=== PATIENT | female | born 1965 | race Caucasian/White ===

== ENCOUNTER 2025-01-04 06:37 | Emergency (ER) | payer OTHER, SELFPAY ==
--- NOTE | ~2025-01-04 | CT_ITS ---
EXAM/PROCEDURE: CT abdomen pelvis wo con HISTORY: right flank pain COMPARISON: None available. TECHNIQUE: Noncontrast CT of abdomen and pelvis FINDINGS: The bowel gas pattern is nonobstructive with no free air free fluid or pneumatosis. Patient status post cholecystectomy and apparent hysterectomy. Small bilateral extrarenal pelves present. Mild right-sided pelvocaliectasis may also be present, although no clearly identified obstructing ureteral stones present. There are several tiny calcifications overlying the expected course of the distal third of the right ureter, however most or all of these are phleboliths. Moderate amount of stool extends to the cecum. No grossly inflamed appendix. Aorta normal in size. Adrenal glands spleen pancreas stomach and liver within normal limits for technique. Mild atelectatic changes in lung bases which are otherwise clear. Trace pericardial effusion. Heart size normal. Diffuse degenerative changes throughout the bones which are otherwise intact. IMPRESSION: Directed noncontrast exam with no clearly identified source of patient's symptoms. A minimally or nonobstructing distal right ureteral stone is not excluded. Other findings as above. Reviewed, dictated and finalized at location A. EL PLANT OPERATOR IMPRESSION: Directed noncontrast exam with no clearly identified source of mike ent's symptoms. A minimally or nonobstructing distal right ureteral stone is no t excluded. Other findings as above.
[2025-01-04 06:53] VITALS: BP 115/77; PULSE 66; RESP 18; TEMP 36.4; O2SAT 100
[2025-01-04 07:13] LABS: Hematocrit 41.1 % (37.0-47.0); Hemoglobin 13.2 g/dL (12.0-15.0); Immature Granulocyte Percent A 0.2 % (0-0.5); Lymphocytes Absolute Auto 2.49 K/mm3 (0.9-3.2); Mean Corpuscular HGB Conc 32.1 g/dl (32-36); Mean Corpuscular Hemoglobin 28.9 pg (26-34); Mean Corpuscular Volume 90.1 fl (80-100); Nucleated Red Blood Cells Absolute Auto 0.000 K/mm3 (0.0-0.012); Nucleated Red Blood Cells Perc 0.0 % (0.0-0.2); Platelet Count Result 290 k/mm3 (150-375); Red Blood Count 4.56 M/mm3 (4.2-5.4); White Blood Count 6.5 K/mm3 (4.5-10.0)
--- NOTE | 2025-01-04 07:27 | PC.NURSE ---
patient ambulated to the bathroom at this time, maintained a steady gait. was provided education on providing a urine sample and to take the sample back to the patients room with her.
[2025-01-04 07:30] LABS: Alanine Aminotransferase 17 U/L (6-35); Albumin Level 4.3 g/dL (3.5-5.1); Alkaline Phosphatase 67 U/L (38-126); Anion Gap 6 mmol/L (4-12); Aspartate Amino Transferase 24 U/L (14-36); Bilirubin,Total 0.5 mg/dL (0.2-1.3); Blood Urea Nitrogen 14 mg/dL (7-17); Calcium 9.3 mg/dL (8.4-10.2); Carbon Dioxide 27 mmol/L (22-30); Chloride 103 mmol/L (98-107); Estimated CRCL calculation 74 ml/min; Estimated Glomerular Filt Rate > 60; Glucose 94 mg/dL (65-110); Potassium 4.6 mmol/L (3.4-5.0); Sodium 136 mmol/L (137-145); Total Protein 7.4 g/dL (6.3-8.2)
[2025-01-04 07:44] LABS: Add Urine Microscopic? YES; Appearance Urine Clear (Clear); Glucose Urine UA Negative (Negative); Leukocyte Esterase Ur Trace LEU/UL (Negative); Nitrate Urine Negative (Negative); Non Pathogenic Casts 0-2; Specific Grav Ur 1.004 (1.001-1.035)
[2025-01-04] MEDS: SODIUM CHLORIDE 0.9% IV 1,000 ML 999 ML IV CONT (08:10)
[2025-01-04] MEDS: HYDROmorphone HCL INJ (*CRX) 1 MG/ML SYR IV PUSH (08:10)
[2025-01-04] MEDS: ONDANSETRON INJ 4 MG/2 ML VIAL IV PUSH (08:10)
--- OUTSIDE RECORDS SUMMARY | 2025-01-04 08:39 | XMS_ITS | Clinical Summary ---
Author Organization [facility] Address [address] [place] [address] Care Team Providers Care Nurse Chemical Dependency Name Role Phone Kong Faustin MD Primary Care Provider [phone] Allergies No known active allergies Medications olmesartan (BENICAR) 20 mg tablet Take 1 tablet (20 mg total) by mouth daily 90 tablet 2 5 Active metFORMIN (GLUCOPHAGE) 500 mg tablet Take 1 tablet (500 mg total) by mouth daily with breakfast 90 tablet 2 5 Active tirzepatide, weight loss, (Zepbound) 7.5 mg/0.5 mL pen injector Inject 0.5 mL (7.5 mg total) under the skin every 7 days 2 mL 3 5 Active Active Problems Problem Noted Date Diagnosed Date Right wrist pain 04/29/2024 Assessment & Plan (04/29/2024 9:14 AM NATIONAL SALES MANAGER): Hand Ortho referral Chronic pain of left thumb 04/29/2024 Assessment & Plan (04/29/2024 9:14 AM NATIONAL SALES MANAGER): Hand Ortho referral Benign hypertension 01/28/2024 Assessment & Plan (01/28/2024 9:13 AM NATIONAL SALES MANAGER): At goal Continue olmesartan 20mg daily Prediabetes 10/29/2023 Assessment & Plan (04/29/2024 9:13 AM NATIONAL SALES MANAGER): A1C 5.2% Assessment & Plan (01/28/2024 9:18 AM NATIONAL SALES MANAGER): Continue metformin May d/c if Zepbound coverage continues with insurance change in February 2024 Labs due next visit Assessment & Plan (10/29/2023 2:00 PM CDT): Improved on Ozempic, however did not tolerate due to s/e A1C 5.5% Given WNL A1C will attempt Zepbound which appears covered BMI 33.0-33.9,adult 10/29/2023 Assessment & Plan (04/29/2024 9:13 AM NATIONAL SALES MANAGER): Continue Zepbound 7.5mg weekly Assessment & Plan (01/28/2024 9:14 AM NATIONAL SALES MANAGER): Continue Zepbound, to communicate with 3rd dose for increase Discussed focus on strength training and protein Assessment & Plan (10/29/2023 2:01 PM CDT): Will trial Zepbound Will notify me with 3rd dose how she is tolerating and increase if able Discussed weekly weights, prioritizing protein, strength training Goal of 5% (11 lbs.) weight loss over next 3 months Discussed s/e and interventions Resolved Problems Problem Noted Date Diagnosed Date Resolved Date Chest wall muscle strain 04/01/202306/2023 Assessment & Plan (04/01/2023 2:24 PM NATIONAL SALES MANAGER): Discussed with Dr. Roxie GRAVES done today-WNL Suspect muscle strain, will treat with MDP and if not improving by Thursday to contact us Soft tissue swelling 06/19/2016 024 Surgical follow-up care 02/15/2013 02/0 08/2023 Knee pain 11/03/2012 04/01/2023 Closed fracture of metacarpal bone 07/18/2010 04/01/2023 Right upper quadrant abdominal pain 04/22/2010 04/01/2023 Immunizations Immunization Administration Dates Next Due Influenza, Quadrivalent, Spl it, Preservative Free, Intramuscular 01/14/2017 Influenza, Trivalent, IM (MDV) 12/27/2013 Influenza, Unspecified 03/17/2012 Surgical History Surgery Date Site/Laterality Comments KNEE SURGERY HYSTERECTOMY GALLBLADDER SURGERY FEMUR SURGERY JOINT REPLACEMENT CHOLECYSTECTOMY Medical History Medical History Date Comments Encounter for other orthopedic aftercare Orthopedic aftercare - (Added by TW Conv) Headache Migraines Hypertension Family History Medical History Relation Name Comments Hypertension Brother Shreyas Funk Arthritis Father Shreyas Diabetes Father Shreyas Heart attack Father Shreyas Hypertension Father Shreyas Hearing loss Mother [place] Hypertension Mother [place] Miscarriages / Stillbirths Mother [place] Breast cancer Mother's Sister Cancer Sister 1 Scarlett Hypertension Sister 1 Scarlett Obesity Sister 1 Scarlett Breast cancer Sister 2 Relation Name Status Comments Brothadrienne Pritchett Jr Alive Father Shreyas Mother Pauline Mother's Sister Sister 1 Scareltt Alive Sister 2 Social History Tobacco Use Types Packs/Day Years Used Date Smoking Tobacco: Never Smokeless Tobacco: Never Tobacco Cessation:Counseling Given: Not Answered Alcohol Use Standard Drinks/Week Comments Yes 0 (1 standard drink = 0.6 oz pur e alcohol) PHQ-2 Answer Date Recorded PHQ-2 Total Score (If total score is 3 or more points, staff should administer the PHQ-9) 0 02/25/2023 Comments No Sex and Gender Information Value Date Recorded Sex Assigned at Not on file Legal Sex Female 1:14 AM NATIONAL SALES MANAGER Gender Identity Female 02/24/2023 2:39 PM NATIONAL SALES MANAGER Sexual Orientation Straight 02/24/2023 2: 39 PM NATIONAL SALES MANAGER Obstetrics History Para Term AB IAB SAB Ectopic Multiple Livin g Live Births 3 3 3 Date Outcome GA Total Labor Labor/2nd/3rd Weight Sex Type Anes PTL Stacia A1 A5 Name Clin Term Term Term Last Filed Vital Signs Vital Sign Reading Time Taken Comments Blood Pressure 126/94 04/29/2024 8:52 AM NATIONAL SALES MANAGER Pulse 86 04/29/2024 8:52 AM NATIONAL SALES MANAGER Temperature 36.7 C (98 F) 04/07/2024 2:04 PM NATIONAL SALES MANAGER Respiratory Rate 20 04/07/2024 2:04 PM NATIONAL SALES MANAGER Oxygen Saturation 96% 04/29/2024 8:52 AM NATIONAL SALES MANAGER Inhaled Oxygen Concentration - - Weight 85.3 kg (188 lb) 08/08/2024 8:24 AM CDT Height 165.7 cm (5' 5.25) 08/08/2024 8:24 AM CD T Body Mass Index 31.05 08/08/2024 8:24 AM CDT Plan of Treatment Health Maintenance Due Date Last Done Comments DTaP/Tdap/Td Vaccine (1 - Tdap) 11/16/1978 Hepatitis B Screening 11/16/1985 Regular Well Visit/Exam 18-64 11/16/1985 Zoster Vaccine (1 of 2) 11/16/2017 Depression Screening 02/26/2024 02/25/2023 Covid-19 Vaccine (3 - 2024-2 6 season) 2024 05/29/2020, 05/06/2020 Influenza Vaccine (#1) 2024 7, 12/27/2013, 03/17/2012 Breast Cancer Screening-Mammogram 04/22/2025 04/22/2024, 03/31/2023 Colon Cancer Screening-Colonoscopy 02/25/2027 02/25/2023, 11/13/2020 Hepatitis C Screening Completed 03/24/2023 Pneumococcal vaccine <65 Aged Out No longer eligible based on patient's age to complete this topic Procedures Procedure Name Priority Date/Time Associated Diagnosis Comments SCREENING MAMMOGRAM BILATERAL W JUAN C Schedule Routine, Read Routine (OP Routine) 04/22/2024 7:35 AM NATIONAL SALES MANAGER Screening mammogram, encounter for HEPATITIS C ANTIBODY Routine 03/24/2023 9:40 AM NATIONAL SALES MANAGER Elevated liver enzymes from Last 3 Months or Most Recently Relevant to Health Maintenance Results * Screening Mammogram Bilateral W Juan C (04/22/2024 7:35 AM NATIONAL SALES MANAGER) Anatomical Region Laterality Modality Breast Bilateral Mammography Impressions 04/22/2024 8:49 AM NATIONAL SALES MANAGER BI-RADS ATLAS category (overall): 2 - Benign There is no mammographic evidence of malignancy. A 1 year screening mammogram is recommended. The patient has been or will be contacted. We recommend annual screening mammography for women at average risk of breast cancer beginning at age 40, based on guidelines of the [employer] (ACR Practice Parameter for the Performance of Screening and Diagnostic Mammography) and [employer] [employer]. For women with and elevated risk of breast cancer, please refer to the ACR Practice Parameter for specific screening recommendations. The patient will be entered into a reminder system with a target due date of 1 year for her next screening exam. Narrative 04/22/2024 8:49 AM NATIONAL SALES MANAGER Screening Mammogram Bilateral W Juan C: 04/22/24 The study was acquired using full field digital technology and interpreted from soft copy. 2D digital mammographic views, as well as 3D digital tomosynthesis were performed in the CC and MLO projections. This study was resulted using Computer-Aided Detection (CAD). CLINICAL: Screening mammogram, encounter for. No relevant medical history has been documented for this patient. History of breast cancer in Sister, Mother's Sister. COMPARISONS: 03/31/2023 Screening Mammogram Bilateral W Juan C BREAST TISSUE: There are scattered areas of fibroglandular density. FINDINGS: There are stable small benign appearing masses and unchanged typically benign calcifications in both beasts. There is no new suspicious finding in either breast on mammogram. us Self Screening Mammogram IMG MAMMO PROCEDURES Fi nal Result * Hepatitis C antibody Blood (03/24/2023 9:40 AM NATIONAL SALES MANAGER) Hep C Ab Nonreactive Nonreactive [facility] Comment:Antibodies to HCV no t detected. Does NOT exclude the possibility of recent exposure to HCV. Current interpretive data was last revised on 21 Blood 03/24/2023 9:40 AM NATIONAL SALES MANAGER 03/24/2023 9:57 AM NATIONAL SALES MANAGER Kong Faustin MD LAB MICROBIOLOGY - GENERAL OR DERABLES Final Result [facility] Department [place] [address] from Last 3 Months or Most Recently Relevant to Health Maintenance Insurance [facility] PLUS [facility] PL[facility] Care Teams Nurse Chemical Dependency Relationship Specialty Start Date End Date Kong Faustin MD PCP - General 10/12/17
--- NOTE | 2025-01-04 09:01 | ED.FEMALEGU ---
HPI - Female Genitourinary General Chief complaint: Urogenital-Female Stated complaint: flank pain Time Seen by Provider: 01/04/25 07:26 History of Present Illness HPI Narrative: Pt presents with right sided back/flank pain for two days. Pt says it has been constant and non radiating. Pt denies injury or any urinary symptoms. Pt denies numbness or weakness or problems with bladder or bowels. Related Data Allergies Allergy/AdvReac Type Severity Reaction Status Date / Time No Known Allergies Allergy Verified 01/04/25 09:12 Review of Systems Review of Systems: All systems reviewed & are unremarkable except as noted in HPI and below Exam Const: General: healthy appearing and no acute distress Nutritional Appearance: well nourished Orientation/consciousness: patient oriented x3 Limitations: no limitations Resp: Effort & Inspection: normal respiratory effort Auscultation: clear to auscultation bilaterally Cardio: Rate: regular rate Rhythm: regular rhythm GI: GI Palp: Yes Soft to palpation and No Tenderness to palpation present (GI) Auscultation: normal bowel sounds : General: Yes no CVA tenderness Back/Spine/Pelvis: Back: CVA tenderness (right) Skin: General skin exam: normal color Rashes: no rashes Wounds: no wounds Neuro: General: patient oriented x3, moves all extremities, no meningeal signs, no focal motor deficits and CN's II-XI intact bilaterally Speech: normal speech Extrem: General: normal to inspection Other: tender right sided lumbar paraspinous muscles with spasm and right flank pain Psych: Appearance: grossly normal Mental Status: mental status grossly normal Affect: normal affect Attitude: cooperative Course Vital Signs Vital signs: Vital Signs Temperature 97.5 F L 01/04/25 06:53 Pulse Rate 66 01/04/25 06:53 Respiratory Rate 18 01/04/25 06:53 Blood Pressure 115/77 01/04/25 06:53 Pulse Oximetry 100 01/04/25 06:53 Temperature 97.5 F L 01/04/25 06:53 Pulse Rate 66 01/04/25 06:53 Respiratory Rate 18 01/04/25 06:53 Blood Pressure 115/77 01/04/25 06:53 Pulse Oximetry 100 01/04/25 06:53 MDM - Female Genitourinary MDM Narrative Medical decision making narrative: Pt better after meds. Pheboliths vs small stones in pelvis without hydro noted on CT. will treat as possible stone vs low back strain with meds and will give urology follow up if stone noted when straining urine. Differential Diagnosis Differential diagnosis: Likely urinary tract infection and other (kidney stone back pain) Lab Data Attestation: I reviewed the patient's lab results. 01/04/25 07:02 01/04/25 07:02 Labs: Lab Results 01/04/25 01/04/25 Range/Units 07:02 07:33 WBC 6.5 (4.5-10.0) K/mm3 RBC 4.56 (4.2-5.4) M/mm3 Hgb 13.2 (12.0-15.0) g/dL Hct 41.1 (37.0-47.0) % MCV 90.1 (80-100) fl MCH 28.9 (26-34) pg MCHC 32.1 (32-36) g/dl RDW 13.0 (11.5-14.5) % Plt Count 290 (150-375) k/mm3 MPV 9.9 (7.4-10.4) fl Immature Gran % (Auto) 0.2 (0-0.5) % Neut % (Auto) 48.9 (45.5-73.1) % Lymph % (Auto) 38.2 (18.3-44.2) % Ell[place] % (Auto) 7.2 (2.6-8.5) % Eos % (Auto) 4.9 H (0-4.4) % Baso % (Auto) 0.6 (0.2-1.2) % Lymph # (Auto) 2.49 (0.9-3.2) K/mm3 Ellsworth # (Auto) 0.5 (0.1-0.6) K/mm3 Eos # (Auto) 0.3 (0-0.3) K/mm3 Baso # (Auto) 0.0 (0.0-0.1) K/mm3 Abs Immat Gran (auto) 0.01 (0.00-0.031) K/mm3 Absolute Neuts (auto) 3.2 (1.3-6.7) K/mm3 Absolute Nucleated RBC 0.000 (0.0-0.012) K/mm3 Nucleated RBC % 0.0 (0.0-0.2) % Sodium 136 L (137-145) mmol/L Potassium 4.6 (3.4-5.0) mmol/L Chloride 103 (98-107) mmol/L Carbon Dioxide 27 (22-30) mmol/L Anion Gap 6 (4-12) mmol/L BUN 14 (7-17) mg/dL Creatinine 0.78 (0.7-1.0) mg/dL Estim Creat Clear Calc 74 ml/min Estimated GFR > 60 (59 - ) Glucose 94 (65-110) mg/dL Calcium 9.3 (8.4-10.2) mg/dL Total Bilirubin 0.5 (0.2-1.3) mg/dL AST 24 (14-36) U/L ALT 17 (6-35) U/L Alkaline Phosphatase 67 (38-126) U/L Total Protein 7.4 (6.3-8.2) g/dL Albumin 4.3 (3.5-5.1) g/dL Urine Color Yellow (Yellow) Urine Appearance Clear (Clear) Urine pH 5.5 (5.0-9.0) Ur Specific [place] 1.004 (1.001-1.035) Urine Protein Negative (Negative) mg/dL Urine Glucose (UA) Negative (Negative) mg/dL Urine Ketones Negative (Negative) mg/dL Ur Blood (Man) Negative (Negative) Urine Nitrate Negative (Negative) Urine Bilirubin Negative (Negative) Urine Urobilinogen 0.2 (<2.0) mg/dL Leukocyte Esterase Rfl Trace H (Negative) NATALIO/UL Urine RBC 0-2 (0-2) /hpf Urine WBC 0-5 (0-3) /hpf Ur Squamous Epith Cells None seen (Few) /hpf Urine Bacteria None seen /hpf Urine Casts 0-2 Imaging Data Attestation: I personally reviewed and interpreted this imaging study as follows: My impression: no hydronephrosis, ?ureteral stone distally Radiologist's impression: [address] [place] [id number] Scan Report Signed Patient: Cydney Trinh : 1965 MR#: [id number] Age: 59 Acct:[id number] Loc: [facility] ADM Date: 01/04/[address]: Ordering Physician: Sameer Gutierrez III, DO Date of Service: 01/04/25 Procedure(s): CT abdomen pelvis wo con Accession Number(s): [id number] cc: Sameer Gutierrez III, ~ EXAM/PROCEDURE: CT abdomen pelvis wo con HISTORY: right flank pain COMPARISON: None available. TECHNIQUE: Noncontrast CT of abdomen and pelvis FINDINGS: The bowel gas pattern is nonobstructive with no free air free fluid or pneumatosis. Patient status post cholecystectomy and apparent hysterectomy. Small bilateral extrarenal pelves present. Mild right-sided pelvocaliectasis may also be present, although no clearly identified obstructing ureteral stones present. There are several tiny calcifications overlying the expected course of the distal third of the right ureter, however most or all of these are phleboliths. Moderate amount of stool extends to the cecum. No grossly inflamed appendix. Aorta normal in size. Adrenal glands spleen pancreas stomach and liver within normal limits for technique. Mild atelectatic changes in lung bases which are otherwise clear. Trace pericardial effusion. Heart size normal. Diffuse degenerative changes throughout the bones which are otherwise intact. IMPRESSION: Directed noncontrast exam with no clearly identified source of patient's symptoms. A minimally or nonobstructing distal right ureteral stone is not excluded. Other findings as above. Reviewed, dictated and finalized at location A. UM TANK TENDER Please be advised this is a medical document. It is intended for [id number] communication. It is written in medical language and may contain unfamiliar abbreviations or verbiage. Medical documents are intended to carry relevant information, facts as evident, and the clinical opinion of the practitioner at the time of the encounter. This report may have been done utilizing a voice recognition system. Attempts have been made to correct errors. However, there may be uncorrected grammatical, spelling, and recognition errors present. The file time of this note does not necessarily represent the time of service. Dictated By: Jairon Martinez MD 01/04/25 0813 Signed By: <Electronically signed by Jairon Martinez MD in OV> 01/04/25 0817 Discharge Plan Discharge Clinical Impression: Low back pain Patient Disposition: Home Condition: Improved Instructions: Antibiotic Form, Kidney Stones (ED), Back Pain (ED) Additional Instructions: strain urine if stone noted follow up with urology Patient Language: Samoan Prescriptions: New hydrocodone-acetaminophen 5-325 mg tablet 1 tablet PO Q6H PRN (Reason: pain) Qty: 14 0RF tamsulosin [Flomax] 0.4 mg capsule 0.4 mg PO DAILY Qty: 10 0RF methocarbamol 750 mg tablet 750 mg PO TID Qty: 30 0RF Follow-up/Referrals: Dominic Serrano MD [Physician, Urology] Roxie,Kong Bolaños MD [Primary Care Provider]
--- NOTE | 2025-01-04 09:24 | PC.NURSE ---
patient ambulated appropriately to the bathroom with a steady gait, states pain is improved.
== END 2025-01-04 09:36 | disposition home or self-care (01) ==
PROVIDERS: Student in an Organized Health Care Education/Training Program; Emergency Provider Emergency Medicine; PCP Internal Medicine
DX: R10.A1 Flank pain, right side (principal); M54.50 Low back pain, unspecified
CPT/HCPCS: 36415; 74176; 80053; 81001; 85025; 96361; 96374; 96375; 99284; J1171; J2405; J7030